=== PATIENT | female | born 1985 | race Caucasian/White ===

== ENCOUNTER 2021-09-25 09:38 | Emergency (ER) | payer OTHER, SELFPAY ==
[2021-09-25 09:43] VITALS: BP 124/79; PULSE 100; RESP 16; TEMP 36; O2SAT 100
[2021-09-25 10:26] LABS: Abs Immature Grans 0.03 10^3/uL (0.0-0.06); Absolute Basophil Count 0.01 10^3/uL (0.0-0.2); Absolute Eosinophil Count 0.05 10^3/uL (0.0-0.7); Absolute Monocyte Count 0.46 10^3/uL (0.1-0.8); Absolute Neutrophil Count 6.29 10^3/uL (1.2-6.7); Basophils % 0.1; Eosinophils % 0.6; HCT 33.3 % (36.0-46.0); HGB 10.8 g/dL (11.2-15.7); Immature Grans % 0.4; MCH 28.1 pg (27.0-33.0); MCHC 32.4 % (32.0-36.0); MCV 86.5 fL (80-95); MPV 11.2 fL (8.0-11.0); Monocytes % 5.5; Neutrophils % 75.4; Nucleated RBC 0 %; Platelet Count 189 10^3/uL (130-400); RBC 3.85 10^6/uL (3.93-5.22); RDW 13.9 % (11.7-14.6); RDW-SD 44.4 fL; WBC 8.34 10^3/uL (4.4-10.8)
--- NOTE | 2021-09-25 10:48 | W.ED.GENAD ---
Discharge Plan Disposition Patient Disposition: HOME Condition: Stable Discharge Details Clinical Impression: Vaginal bleeding in Primary Care Provider: Unknown,Unknown ED Provider: Kenneth Stoner Home Meds and New Rx's Prescriptions: Continued metoclopramide HCl [Reglan] 5 mg Tablet 5 mg PO PRNRF: 0 pantoprazole [Protonix] 40 mg Tablet,Delayed Release (Dr/Ec) 40 mg PO DAILY RF: 0 Discharge Instructions Additional Instructions: Today you are having vaginal bleeding which can be completely normal in but is also concerning for potential threatened miscarriage. Laboratory values did not reveal any obvious emergent process. heart tones are 147. Your serum hCG level is 55,127. Unfortunate, I am unable to obtain an ultrasound here at my facility over the weekend. You have been given a single dose of RhoGAM. Please watch for new or worsening symptoms and return to the ER for any concerns. Tomorrow morning please contact your [facility]NAGER [facility] team in [place] before you travel home, you need to have your hCG levels checked in the next 48 hours and I strongly recommend obtaining an ultrasound through your [facility] team, hopefully tomorrow. Please go to any ER along your travels for new or worsening symptoms. Discharge Data Discharge Date/Time-TO BE ENTERED AT DEPARTURE: 09/25/21 12:23 Medical Decision Making 36-year-old female, denies significant past family history, G4, P2, approximately 12-13 weeks , presents to the ER for evaluation of what she describes as vaginal bleeding that began this morning, associated with 1 past clot, now bleeding improving. She reports that she has had ongoing left lower quadrant pain throughout her and this is unchanged today. She has had normal MANAGER ELIGIBILITY care at home in [place] and did have an ultrasound revealing a viable . Patient reports having had bleeding and all of her previous pregnancies. Clinically she appears well, nontoxic, hemodynamically stable. Plan is to obtain CBC, CMP, ABO/Rh, urinalysis, quantitative hCG. Unfortunately it is the weekend and I am unable to obtain a pelvic-transvaginal ultrasound at this time. While obtaining the ultrasound would be very helpful in definitively diagnosing her overall presentation, I do not believe that it would change her overall disposition having to wait until the morning to have an ultrasound. heart tones 147. Differential includes vaginal bleeding in , threatened , ectopic , etc. WBC of 8.34 hemoglobin 10.8 hematocrit 33.3 platelet count 189. Electrolytes unremarkable. Renal function appropriate. Quantitative hCG is 55,127 which is appropriate for her timeline of . Urinalysis reveals blood but no signs of infection. A negative blood type. Plan is to give RhoGAM. I was able to discuss the case and presentation with our [facility] team, Dr. Schofield. She does not recommend any additional work-up here in the ER. She was able to confirm the dose of RhoGAM was appropriate. She has no additional suggestions here in the ER and feels as though discharge from the ER is appropriate with close outpatient [facility]NA[facility] follow-up at home tomorrow and ultrasound. I relayed my conversation with MANAGER ELIGIBILITY to the patient and family. She will also need to have her hCG in the next 48 hours. She has no additional questions or concerns and is comfortable with discharge. She remains hemodynamically stable. Strict discharge and return precautions provided. Insert dragon Lab Data Lab results reviewed: Yes I reviewed the patient's lab results. Labs: Laboratory Tests Range/Units 09/25/21 09/25/21 09/25/21 10:19 10:19 10:19 WBC (4.4-10.8) 10^3/uL 8.34 RBC (3.93-5.22) 10^6/uL 3.85 L Hgb (11.2-15.7) g/dL 10.8 L Hct (36.0-46.0) % 33.3 L MCV (80-95) fL 86.5 MCH (27.0-33.0) pg 28.1 MCHC (32.0-36.0) % 32.4 RDW (11.7-14.6) % 13.9 Plt Count (130-400) 10^3/uL 189 MPV (8.0-11.0) fL 11.2 H Immature Gran % 0.4 Neutrophils % 75.4 Lymphocytes % 18.0 Monocytes % 5.5 Eosinophils % 0.6 Basophils % 0.1 Nucleated RBC % % 0 Absolute Neutrophils (1.2-6.7) 10^3/uL 6.29 Absolute Lymphocytes (1.2-3.4) 10^3/uL 1.50 Absolute Monocytes (0.1-0.8) 10^3/uL 0.46 Absolute Eosinophils (0.0-0.7) 10^3/uL 0.05 Absolute Basophils (0.0-0.2) 10^3/uL 0.01 Sodium (136-145) mmol/L 137 Potassium (3.5-5.1) mmol/L 3.9 Chloride (98-107) mmol/L 103 Carbon Dioxide (21.0-32.0) mmol/L 26.0 Anion Gap (3-11) mmol/L 8.0 BUN (7-18) mg/dL 11 Creatinine (0.55-1.02) mg/dL 0.7 Estimated GFR/1.73 m2 (mL/min/1.73m2) >= 60.00 Glucose (74-106) mg/dL 85 Calcium (8.5-10.1) mg/dL 8.7 Total Bilirubin (0.2-1.0) mg/dL 0.5 AST (15-37) U/L 9 L ALT (14-59) U/L 17 Alkaline Phosphatase (46-116) U/L 62 Total Protein (6.4-8.2) g/dL 6.5 Albumin (3.4-5.0) g/dL 3.1 L Lipase (73-393) U/L 132 Beta HCG, Quant (1-3) mIU/mL 58523 H Urine Color (Yellow) Urine Clarity (Clear) Urine pH (5-8) Ur Specific [place] (1.005-1.025) Urine Protein (Negative) mg/dL Urine Ketones (Negative) mg/dL Urine Blood (Negative) Urine Nitrite (Negative) Urine Bilirubin (Negative) Urine Urobilinogen (Up TO 0.2) EU/dL Ur Leukocyte Esterase (Negative) Urine RBC (0-2) HPF Urine WBC (0-5) HPF Ur Epithelial Cells (Negative) HPF Urine Crystals (Negative) HPF Urine Bacteria (Negative) HPF Urine Mucus (Negative) Ur Culture Indicated? Urine Glucose (Negative) mg/dL Patient ABO/Rh A Negative Antibody Screen NEGATIVE Unit Expiration Date 02/10/2023 Product Lot # [id number] Range/Units 09/25/21 10:54 WBC (4.4-10.8) 10^3/uL RBC (3.93-5.22) 10^6/uL Hgb (11.2-15.7) g/dL Hct (36.0-46.0) % MCV (80-95) fL MCH (27.0-33.0) pg MCHC (32.0-36.0) % RDW (11.7-14.6) % Plt Count (130-400) 10^3/uL MPV (8.0-11.0) fL Immature Gran % Neutrophils % Lymphocytes % Monocytes % Eosinophils % Basophils % Nucleated RBC % % Absolute Neutrophils (1.2-6.7) 10^3/uL Absolute Lymphocytes (1.2-3.4) 10^3/uL Absolute Monocytes (0.1-0.8) 10^3/uL Absolute Eosinophils (0.0-0.7) 10^3/uL Absolute Basophils (0.0-0.2) 10^3/uL Sodium (136-145) mmol/L Potassium (3.5-5.1) mmol/L Chloride (98-107) mmol/L Carbon Dioxide (21.0-32.0) mmol/L Anion Gap (3-11) mmol/L BUN (7-18) mg/dL Creatinine (0.55-1.02) mg/dL Estimated GFR/1.73 m2 (mL/min/1.73m2) Glucose (74-106) mg/dL Calcium (8.5-10.1) mg/dL Total Bilirubin (0.2-1.0) mg/dL AST (15-37) U/L ALT (14-59) U/L Alkaline Phosphatase (46-116) U/L Total Protein (6.4-8.2) g/dL Albumin (3.4-5.0) g/dL Lipase (73-393) U/L Beta HCG, Quant (1-3) mIU/mL Urine Color (Yellow) Yellow Urine Clarity (Clear) Clear Urine pH (5-8) 6.0 Ur Specific [place] (1.005-1.025) 1.025 Urine Protein (Negative) mg/dL Negative Urine Ketones (Negative) mg/dL Negative Urine Blood (Negative) Moderate H Urine Nitrite (Negative) Negative Urine Bilirubin (Negative) Negative Urine Urobilinogen (Up TO 0.2) EU/dL 0.2 Ur Leukocyte Esterase (Negative) Negative Urine RBC (0-2) HPF Negative Urine WBC (0-5) HPF Negative Ur Epithelial Cells (Negative) HPF Rare Urine Crystals (Negative) HPF Negative Urine Bacteria (Negative) HPF Rare Urine Mucus (Negative) Negative Ur Culture Indicated? No Urine Glucose (Negative) mg/dL Negative Patient ABO/Rh Antibody Screen Unit Expiration Date Product Lot # HPI General Mode of arrival: ambulatory. Date/Time Provider Initiated Documentation: 09/25/21 09:38. Limitations to Documentation: no limitations. Information obtained by: patient and family. HPI Narrative: This is a 36-year-old female, G4, P2, known miscarriage, approximately 12 weeks presenting to the ER for vaginal bleeding. Patient states that she is visiting from [place] and has normal [facility]NAGER ELIG[facility] care at home. She has had an ultrasound which revealed a viable . She tells me that she has had some bleeding in all of her pregnancies. She went to bed last night feeling asymptomatic. Denies recent illness or trauma. This morning when she got up she noticed some vaginal bleeding and passed a single clot. Since that time she states that the bleeding has decreased in overall severity but she does continue to have some spotting, denies any more clots. She states that her entire she has had mild left lower abdominal discomfort that is unchanged now. She denies vaginal discharge, fever, nausea, vomiting, diarrhea, dysuria. She plans to return home tomorrow morning. Related Data Home Medications Medication Instructions Recorded Confirmed metoclopramide HCl [Reglan] 5 mg PO PRN 09/25/21 pantoprazole [Protonix] 40 mg PO DAILY 09/25/21 09/25/21 Allergies Allergy/AdvReac Type Severity Reaction Status Date / Time No Known Allergies Allergy Unverified 09/25/21 09:48 General Stated Complaint: MANAGER ELIGIBILITY ABRAN: 3 Review of Systems Constitutional Constitutional: Denies fever(s) Cardiovascular Cardiovascular: Denies chest pain and Denies dyspnea Respiratory Respiratory: Denies cough and Denies dyspnea Gastrointestinal Gastrointestinal: Reports abdominal pain, Denies nausea and Denies vomiting Genitourinary Genitourinary: Reports abnormal vaginal bleeding and Denies vaginal discharge Musculoskeletal Musculoskeletal: Denies back pain Integumentary/Breasts Skin/Breast: Denies rash Hematologic/Lymphatic Hematologic/Lymphatic: Denies easy bleeding and Denies easy bruising PFSH All Active Problems (Updated 09/25/21 @ 12:11 by MATA Zavaleta) Vaginal bleeding in (Acute) Social History Smoking/Tobacco Use Status: Never Smoking risk assessment performed?: Yes Substance use type: does not use Exam Const General: cooperative, healthy appearing, comfortable and no acute distress Orientation: alert and awake HENDE Head: normal to inspection, normocephalic and atraumatic Face and sinus: normal facial exam Mouth: moist mucous membranes Eyes General: appearance normal, both eyes and all related structures Conjunctivae: conjunctivae normal Neck Neck: normal visual inspection, trachea midline and supple Resp Effort & Inspection: normal respiratory effort and able to speak in complete sentences Auscultation: clear to auscultation bilaterally Cardio Rate: regular rate Rhythm: regular rhythm GI Inspection: normal to inspection Palpation: soft, not firm, no guarding, no pulsatile masses and nontender Other: Examination consistent with approximately 12 weeks General: deferred Back/Spine/Pelvis Back: No back tenderness Skin General skin exam: no rashes or lesions noted Neuro General: patient alert, patient awake, moves all extremities and no focal motor deficits Cognition: normal cognition Speech: speech normal Gait: normal gait Sensory Exam: no sensory deficits noted Extrem General: normal to inspection and full ROM Psych Appearance: grossly normal Mental Status: mental status grossly normal Course Vital Signs Vital signs: Vital Signs Temperature 36 C L 09/25/21 09:43 Pulse 100 H 09/25/21 09:43 Respiratory Rate 16 09/25/21 09:43 Blood Pressure 124/79 09/25/21 09:43 Pulse Oximetry 100 09/25/21 09:43 Temperature 36 C L 09/25/21 09:43 Temperature Source Skin 09/25/21 09:43 Pulse 100 H 09/25/21 09:43 Respiratory Rate 16 09/25/21 09:43 Respiratory Effort 09/25/21 09:43 Blood Pressure 124/79 09/25/21 09:43 Blood Pressure Position Sitting 09/25/21 09:43 Pulse Oximetry 100 09/25/21 09:43 Oxygen Delivery Method Room Air 09/25/21 09:43 Oxygen Flow Rate 0 09/25/21 09:43 Pain Level 0 09/25/21 09:43 Lab/Test Results Lab/Test Results: Laboratory Tests Range/Units 09/25/21 09/25/21 10:19 10:19 WBC (4.4-10.8) 10^3/uL 8.34 RBC (3.93-5.22) 10^6/uL 3.85 L Hgb (11.2-15.7) g/dL 10.8 L Hct (36.0-46.0) % 33.3 L MCV (80-95) fL 86.5 MCH (27.0-33.0) pg 28.1 MCHC (32.0-36.0) % 32.4 RDW (11.7-14.6) % 13.9 Plt Count (130-400) 10^3/uL 189 MPV (8.0-11.0) fL 11.2 H Immature Gran % 0.4 Neutrophils % 75.4 Lymphocytes % 18.0 Monocytes % 5.5 Eosinophils % 0.6 Basophils % 0.1 Nucleated RBC % % 0 Absolute Neutrophils (1.2-6.7) 10^3/uL 6.29 Absolute Lymphocytes (1.2-3.4) 10^3/uL 1.50 Absolute Monocytes (0.1-0.8) 10^3/uL 0.46 Absolute Eosinophils (0.0-0.7) 10^3/uL 0.05 Absolute Basophils (0.0-0.2) 10^3/uL 0.01 Patient ABO/Rh A Negative
[2021-09-25 11:00] LABS: Bilirubin Negative (Negative); Blood Moderate (Negative); Clarity Clear (Clear); Glucose Negative (Negative); Ketones Negative (Negative); Leukocyte Esterase Negative (Negative); Nitrite Negative (Negative); Specific Gravity 1.025 (1.005-1.025); Urobilinogen 0.2 EU/dL (Up TO 0.2)
[2021-09-25 11:02] LABS: ALT 17 U/L (14-59); AST 9 U/L (15-37); Albumin 3.1 g/dL (3.4-5.0); Alkaline Phosphatase 62 U/L (46-116); BUN 11 mg/dL (7-18); Bilirubin, Total 0.5 mg/dL (0.2-1.0); CREATININE 0.7 mg/dL (0.55-1.02); Calcium 8.7 mg/dL (8.5-10.1); Chloride 103 mmol/L (98-107); Glucose 85 mg/dL (74-106); Potassium 3.9 mmol/L (3.5-5.1); Sodium 137 mmol/L (136-145); Total Protein 6.5 g/dL (6.4-8.2)
[2021-09-25 11:05] LABS: HCG Quant, Pregnancy 55127 mIU/mL (1-3)
[2021-09-25 11:12] LABS: Lipase 132 U/L (73-393)
[2021-09-25 11:21] LABS: Bacteria Rare HPF (Negative); Epithelial Cells Rare HPF (Negative); RBC Negative HPF (0-2); WBC Negative HPF (0-5)
[2021-09-25 11:24] LABS: C & S Indicated? No; Crystals Negative HPF (Negative); Mucus Negative (Negative)
[2021-09-25 12:02] VITALS: BP 117/63; PULSE 81; RESP 17; TEMP 36.3; O2SAT 98
[2021-09-25 12:31] VITALS: BP 117/63; PULSE 81; RESP 17; TEMP 36.3; O2SAT 98
== END 2021-09-25 12:23 | disposition home or self-care (01) ==
PROVIDERS: Emergency Provider Physician Assistant
DX: O20.9 Hemorrhage in early pregnancy, unspecified (principal); Z3A.12 12 weeks gestation of pregnancy; R10.32 Left lower quadrant pain
CPT/HCPCS: 80053; 83690; 86850; 86900; 86901; 90384; 96372; 99284; 81003; 81015; 84702; 85025; 99283; J2790